=== PATIENT | male | born 1965 | race Two or more races ===

== ENCOUNTER 2019-04-29 12:40 | Emergency (ER) | payer OTHER ==
[~2019-04-29] VITALS: Ht 172.7 cm; Wt 76.7 kg
[~2019-04-29 12:40] MED LIST: DICLOFENAC POTA50 MG PO; HUMULIN 70/30 V10 ML SQ; HYDROCHLOROTHIA25 MG PO; LIPITOR; METFORMIN 500MG; ROCEPHIN1 G/VIAL IJ; SEPTRA; TRICOR145 MG PO; VASOTEC5 MG PO
[2019-04-29] MEDS ORDERED: LIPITOR40 M1 (13:00)
[2019-04-29] MEDS ORDERED: LANTUS SOL100 UNIT/1 (13:00)
[2019-04-29] MEDS ORDERED: ASPIR 8181 MG (13:01)
[2019-04-29] MEDS ORDERED: XARELTO10 MG (13:01)
== END 2019-04-29 19:07 | disposition home or self-care (01) ==
LOC: ER 12:40
DX: R55 Syncope and collapse (principal); R42 Dizziness and giddiness